=== PATIENT | female | born 1940 | race Caucasian/White ===

== ENCOUNTER → 2016-10-21 | Outpatient (CLI) | payer MEDICARE, BC ==
[~2016-10-21] MED LIST: ALAVERT10 M1 PO; ALPRAZOLAM0.25 MG PO; AMITRIPTYLINE100 MG PO; ASPIRIN 32325 MG/TAB PO; ASPIRIN 81M81 MG/TA2 PO; ASPIRIN E.C. 8181 MG PO; BUSPAR5 MG PO; CETIRIZINE10 MG PO; DAYPRO 600600 MG PO; DESYREL 50MG50 MG PO; ERYTHROMYCIN D PO; FLEXERIL10 MG PO; FUROSEMIDE20 MG PO; GABAPENTIN300 MG PO; GLUCOPHAGE500 MG/TAB PO; HCTZ 25MG25 MG PO; IRON325 M1 PO; LORTAB 5/500 501 TAB PO; METFORMIN HCL500 MG PO; MICARDIS HCT 121 TAB PO; NEURONTIN600 MG/TAB PO; NEXIUM40 MG PO; NORCO 325 MG-51 TAB PO; NORVASC 5MG5 MG/TAB PO; NYSTATIN OR100 MU/ML PO; OMEGA 31000 MG; PREMARIN 0.60.625 M1 PO; PRILOSEC 20MG20 MG PO; PRINIVIL20 MG PO; PROBIOTIC-MAJOR PO; SIMVASTATIN20 MG PO; SINGULAIR10 MG PO; ULTRAM 50MG TAB50 MG PO; VERAMYST27.5 MCG/A NS; VICODIN PO; VITAMIN C500 MG PO; VITAMIN D1000 IU PO; XANAX0.25 MG PO; XOPENEX HF0.045 MG/A IH; ZOCOR 20MG20 MG PO; ZOCOR20 MG PO
== END ==
LOC: COL.RAD 07:48
DX: M25.512 Pain in left shoulder (principal)
CPT/HCPCS: J3301; Q9967

== ENCOUNTER → 2018-01-25 | Outpatient (CLI) | payer MEDICARE, BC ==
[2018-01-25 15:21] LABS: C-REACTIVE PROTEIN 2.7 mg/dL (0.0-0.9); URIC ACID 5.2 mg/dL (2.5-6.2)
[2018-01-25 23:28] LABS: RHEUMATOID FACTOR-SCREEN <15 IU/mL (0-29)
== END ==
LOC: COL.LAB 14:10
PROVIDERS: Orthopaedic Surgery Sports Medicine
DX: M25.511 Pain in right shoulder (principal)

== ENCOUNTER 2018-03-05 08:03 | Emergency (ER) | payer MEDICARE, BC ==
[~2018-03-05] VITALS: Ht 152.4 cm; Wt 70.5 kg
[2018-03-05 08:09] VITALS: TEMP 98.7
[2018-03-05 09:40] VITALS: BP 159/72; PULSE 80
[2018-03-05] MEDS ORDERED: MACROBID 1100 MG/CAP PO (11:23)
== END 2018-03-05 09:46 | disposition home or self-care (01) ==
LOC: COL.ER 08:03
DX: M54.31 Sciatica, right side (principal); N39.0 Urinary tract infection, site not specified; M79.7 Fibromyalgia; Z88.5 Allergy status to narcotic agent; Z88.6 Allergy status to analgesic agent
CPT/HCPCS: J2270; J2360

== ENCOUNTER → 2018-04-18 | Outpatient (CLI) | payer MEDICARE, BC ==
[~2018-04-18] MED LIST changes: +MACROBID 1100 MG/CAP PO
== END ==
LOC: MC.RAD 07:57
DX: Z12.31 Encounter for screening mammogram for malignant neoplasm of breast (principal); Z98.82 Breast implant status

== ENCOUNTER → 2018-07-21 | Outpatient (CLI) | payer MEDICARE, BC | LOC: COL.RAD 12:26 | DX: G60.9 Hereditary and idiopathic neuropathy, unspecified (principal); I67.82 Cerebral ischemia; M48.02 Spinal stenosis, cervical region; M50.30 Other cervical disc degeneration, unspecified cervical region ==

== ENCOUNTER 2018-08-26 11:15 | Outpatient (RCR) | payer MEDICARE, BC | END 2018-08-26 13:30 | disposition home or self-care (01) | LOC: WSPT 11:15 | DX: R27.0 Ataxia, unspecified (principal); W19.XXXD Unspecified fall, subsequent encounter; Z91.81 History of falling ==

== ENCOUNTER 2018-11-11 11:00 | Outpatient (RCR) | payer MEDICARE, BC | END 2018-11-23 08:24 | disposition home or self-care (01) | LOC: WSPT 11:00 | DX: R53.1 Weakness (principal); R26.81 Unsteadiness on feet; M79.604 Pain in right leg ==

== ENCOUNTER → 2019-05-15 | Outpatient (CLI) | payer MEDICARE, BC | LOC: MC.RAD 13:22 | DX: Z12.31 Encounter for screening mammogram for malignant neoplasm of breast (principal) ==

== ENCOUNTER → 2020-05-17 | Outpatient (CLI) | payer MEDICARE, BC | LOC: MC.RAD 08:43 | DX: Z12.31 Encounter for screening mammogram for malignant neoplasm of breast (principal) ==

== ENCOUNTER → 2021-05-30 | Outpatient (CLI) | payer MEDICARE, BC | LOC: MC.RAD 13:56 | DX: N63.14 Unspecified lump in the right breast, lower inner quadrant (principal); N64.89 Other specified disorders of breast ==

== ENCOUNTER → 2021-06-11 | Outpatient (CLI) | payer MEDICARE, BC | LOC: MC.RAD 09:46 | DX: N63.14 Unspecified lump in the right breast, lower inner quadrant (principal) ==